=== PATIENT | female | born 1960 | race Caucasian/White ===

== ENCOUNTER 2020-12-25 14:09 | Day surgery (SDC) | payer OTHER ==
[2020-12-25] MEDS ORDERED: PRED5 PO (14:45)
[2020-12-25] MEDS ORDERED: CYCLOBENZAPRINE5 MG PO (14:45)
[2020-12-25] MEDS ORDERED: CELE200 PO (14:46)
[2020-12-25] MEDS ORDERED: IBUP200 (14:47)
[2020-12-25] MEDS ORDERED: LEVSOD25 PO (14:48)
[2020-12-25] MEDS ORDERED: OMEP20ER PO (14:49)
[2020-12-25] MEDS ORDERED: Prinivil10 MG PO (14:49)
[2020-12-25] MEDS ORDERED: ALPR1 (14:52)
[2020-12-25] MEDS ORDERED: VYVANSE40 MG PO (14:52)
[2020-12-25] MEDS ORDERED: ZOLP5 PO (14:55)
== END 2020-12-25 15:02 | disposition home or self-care (01) ==
LOC: ATC 14:09
DX: H46.9 Unspecified optic neuritis (principal); H43.393 Other vitreous opacities, bilateral; K21.9 Gastro-esophageal reflux disease without esophagitis; I10 Essential (primary) hypertension; E03.9 Hypothyroidism, unspecified; M19.90 Unspecified osteoarthritis, unspecified site; Z79.52 Long term (current) use of systemic steroids; Z87.891 Personal history of nicotine dependence; Z88.2 Allergy status to sulfonamides; Z88.6 Allergy status to analgesic agent; Z88.5 Allergy status to narcotic agent; Z88.8 Allergy status to other drugs, medicaments and biological substances
CPT/HCPCS: 96365; J2930

== ENCOUNTER 2020-12-26 14:33 | Day surgery (SDC) | payer OTHER ==
[~2020-12-26 14:33] MED LIST: ALPR1; CELE200 PO; CYCLOBENZAPRINE5 MG PO; IBUP200; LEVSOD25 PO; OMEP20ER PO; PRED5 PO; Prinivil10 MG PO; VYVANSE40 MG PO; ZOLP5 PO
== END 2020-12-26 15:24 | disposition home or self-care (01) ==
LOC: ATC 14:33
DX: H46.9 Unspecified optic neuritis (principal); H43.393 Other vitreous opacities, bilateral; K21.9 Gastro-esophageal reflux disease without esophagitis; I10 Essential (primary) hypertension; E03.9 Hypothyroidism, unspecified; M19.90 Unspecified osteoarthritis, unspecified site; G43.909 Migraine, unspecified, not intractable, without status migrainosus; Z87.891 Personal history of nicotine dependence; Z88.6 Allergy status to analgesic agent; Z88.5 Allergy status to narcotic agent; Z88.2 Allergy status to sulfonamides; Z88.8 Allergy status to other drugs, medicaments and biological substances; Z79.52 Long term (current) use of systemic steroids
CPT/HCPCS: 96365; J2930

== ENCOUNTER 2020-12-27 13:29 | Day surgery (SDC) | payer OTHER ==
--- NOTE | 2020-12-27 16:05 | NUR ---
IV SITE TO LEFT FOREARM WRAPPED WITH 2X2'S AND COBAN FOR USE TOMORROW
== END 2020-12-27 16:00 | disposition home or self-care (01) ==
LOC: ATC 13:29
DX: H46.9 Unspecified optic neuritis (principal); M19.90 Unspecified osteoarthritis, unspecified site; I10 Essential (primary) hypertension; E03.9 Hypothyroidism, unspecified; Z87.891 Personal history of nicotine dependence
CPT/HCPCS: 96365; J2930

== ENCOUNTER 2020-12-28 07:10 | Day surgery (SDC) | payer OTHER ==
--- NOTE | 2020-12-28 14:57 | NUR ---
IV SITE TO LEFT FOREARM WRAPPED WITH 2X2'S AND COBAN FOR USE TOMORROW
== END 2020-12-28 14:57 | disposition home or self-care (01) ==
LOC: ATC 07:10
DX: H46.9 Unspecified optic neuritis (principal); H43.393 Other vitreous opacities, bilateral; K21.9 Gastro-esophageal reflux disease without esophagitis; E03.9 Hypothyroidism, unspecified; Z87.891 Personal history of nicotine dependence
CPT/HCPCS: 96365; J2930

== ENCOUNTER 2020-12-29 09:32 | Day surgery (SDC) | payer OTHER | END 2020-12-29 16:30 | disposition home or self-care (01) | LOC: ATC 09:32 | DX: H46.9 Unspecified optic neuritis (principal); H43.393 Other vitreous opacities, bilateral; K21.9 Gastro-esophageal reflux disease without esophagitis; M19.90 Unspecified osteoarthritis, unspecified site; I10 Essential (primary) hypertension; E03.9 Hypothyroidism, unspecified; Z87.891 Personal history of nicotine dependence; Z88.6 Allergy status to analgesic agent; Z88.5 Allergy status to narcotic agent; Z88.2 Allergy status to sulfonamides; Z88.8 Allergy status to other drugs, medicaments and biological substances | CPT/HCPCS: 96365; J2930 ==